=== PATIENT | male | born 1955 | race Caucasian/White ===

== ENCOUNTER 2023-06-05 06:32 | Day surgery (SDC) | payer OTHER ==
[2023-06-04 09:16] VITALS: BMI 26.7
[~2023-06-05 06:32] MED LIST: Enoxaparin 25 MG, EPINEPHrine 0.3 MG in Ophthalmic Irrigation Solution 500 ML SC SCH; Midazolam HCl 2 mg/2 ml Vial ONE; PROPOFOL 20 ML ONE; fentaNYL 50 mcg/mL 1 mL Vial ONE
[2023-06-05] MEDS ORDERED: Cyclopentolate 1% Opth Drop 2 ML BOT ONE (07:06)
[2023-06-05] MEDS ORDERED: PHENYLephrine 2.5% Ophth Soln 15 ml Bottle ONE (07:06)
== END 2023-06-05 09:46 | disposition home or self-care (01) ==
LOC: SDC 06:32
PROVIDERS: ATTEND Ophthalmology Retina Specialist
PROC: 08T53ZZ Resection of Left Vitreous, Percutaneous Approach (ICD-10-PCS; principal; 2023-06-05)
PROC: 08NF3ZZ Release Left Retina, Percutaneous Approach (ICD-10-PCS; 2023-06-05)
DX: H35.342 Macular cyst, hole, or pseudohole, left eye (principal)
CPT/HCPCS: 67025; 67041; J3010; J0171; J1650; J2250; J2704